=== PATIENT | female | born 1995 | race Hispanic/Latino ===

== ENCOUNTER 2019-06-16 08:44 | Emergency (ER) | payer BC ==
[~2019-06-16] VITALS: Ht 157.5 cm; Wt 65.8 kg
[~2019-06-16 08:44] MED LIST: EPIPEN0.3 MG/0.3; PROAIR HFA INH8.5 GM
--- OUTSIDE RECORDS SUMMARY | 2019-06-16 08:45 | XMS REPORT | Summary of Care ---
Author Author [facility] - Health Organization [facility] - Health Address Unknown Phone Unavailable Care Team Providers Care Shredded Filler Machine Wrapper Layer Name Role Phone Jaron Avila KEY CARRIER PCP Encounter Details Care Team Description Date Type Department Doctor Unassigned, [place] [address] [place] [address] 02/15/2019 Letter (Out) [facility] MyChart Messages [address] [place] [phone] Allergies Comments Active Allergy Reactions Severity Noted Date Iodine Rash 11/07/2018 Latex Rash 11/07/2018 Sulfa (Sulfonamide Rash 11/07/2018 Antibiotics) documented as of this encounter (statuses as of 02/15/2019) Medications End Date Status Medication Sig Dispensed Refills Start Date Active metFORMIN 500 mg tablet Take 500 mg 0 by mouth 2 (two) times daily with meals. documented as of this encounter (statuses as of 02/15/2019) Active Problems Not on filedocumented as of this encounter (statuses as of 02/15/2019) Social History Date Tobacco Use Types Packs/Day Years Used Never Smoker Smokeless Tobacco: Never Used Drinks/Week oz/Week Comments Alcohol Use Never Alcohol Habits Answer Date Recorded How often do you have a drink containing alcohol? Never 01/11/2019 How many drinks containing alcohol do you have on Not asked a typical day when you are drinking? How often do you have six or more drinks on one Not asked occasion? Sex Assigned at Date Recorded Not on file Industry Job Start Date Occupation Not on file Not on file Not on file Travel End Travel History Travel Start No recent travel history available. documented as of this encounter Last Filed Vital Signs Not on filedocumented in this encounter Plan of Treatment Care Team Description Date Type Specialty Yesi Diamond MD [address] [place], [place] [address] [phone] Arrived 02/15/2019 Office Visit Obstetrics & Gynecology Health Maintenance Due Date Last Done Comments MENINGOCOCCAL B VACCINES 2006 (1 of 2 - Risk Bexsero 2-dose series) VARICELLA VACCINES (1 of 2009 2 - 13+ 2-dose series) HPV VACCINES (1 - Female 2011 3-dose series) CHLAMYDIA SCREENING 2012 DTaP,Tdap,and Td Vaccines 2015 (1 - Tdap) PAP SMEAR 2017 INFLUENZA VACCINE 03/13/2019 MENINGOCOCCAL VACCINE Aged Out No longer eligible based on patient's age to complete this topic PNEUMOCOCCAL 0-64 YEARS Aged Out No longer eligible based COMBINED SERIES on patient's age to complete this topic documented as of this encounter Results Not on filedocumented in this encounter Insurance Type Payer Benefit Subscriber ID Effective Phone Address Plan / Dates Group PPO/POS BCBS OF [facility] BCBS OF [id number] 2018-P EMPLOYEE [place] [facility] EMPL[employer]EE PLAN [id number] 2018- [place] Present documented as of this encounter
--- OUTSIDE RECORDS SUMMARY | 2019-06-16 08:46 | XMS REPORT | Summary of Care ---
Author Author [facility] - Health Organization [facility] - Health Address Unknown Phone Unavailable Care Team Providers Care Meter Tester Name Role Phone Jaron Avila Nydia PLANT FLOOR AUTOMATION MANAGER PCP Reason for Visit * Radiology Services (Routine) Referred By Contact Referred To Contact Status Reason Specialty Diagnoses / Procedures Yesi Diamond MD [address] [place] [address] Authorized Diagnostic Diagnoses Radiology Family history of BRCA gene positive Lump or mass in breast P rocedures BI DIAGNOSTIC TOMOSYNTHESIS BILATERAL BI DIAGNOSTIC TOMOSYNTHESIS RIGHT BI DIAGNOSTIC MAMMOGRAM RIGHT Encounter Details Care Team Description Date Type Department Yesi Diamond MD [address] [place] [address] Arrived 02/17/2019 Hospital [facility] Encounter [facility] [address] [place] [phone] Allergies Comments Active Allergy Reactions Severity Noted Date Iodine Rash 11/07/2018 Latex Rash 11/07/2018 Sulfa (Sulfonamide Rash 11/07/2018 Antibiotics) documented as of this encounter (statuses as of 02/18/2019) Medications End Date Status Medication Sig Dispensed Refills Start Date Active metFORMIN 500 mg tablet Take 1 tablet 60 tablet 11 by mouth 2 9 (two) times daily with meals. documented as of this encounter (statuses as of 02/18/2019) Active Problems Not on filedocumented as of this encounter (statuses as of 02/18/2019) Social History Date Tobacco Use Types Packs/Day [...] Treatment Care Team Description Date Type Specialty Kelly Beckford [address] [place] [phone] 02/22/2019 Office Visit Pediatric Genetics Yesi Diamond MD [address] [place], [place] [phone] 03/08/2019 Office Visit Obstetrics & Gynecology Date/Time Name Type Priority Associated Diagnoses 02/17/2019 4:34 PM CDT BI DIAGNOSTIC IMAGING Routine Family history of BRCA TOMOSYNTHESIS BILATERAL gene positive Lump or mass in breast Order Schedule Name Type Priority Associated Diagnoses 1 Occurrences starting 02/17/2019 until 02/17/2019 BI DIAGNOSTIC IMAGING Routine Family history of BRCA TOMOSYNTHESIS BILATERAL gene positive Lump or mass in breast Health Maintenance Due Date Last Done Comments [...] Results Not on filedocumented in this encounter Visit Diagnoses Diagnosis Family history of BRCA gene positive Family history of genetic disease carrier Lump or mass in breast documented in this encounter Insurance Type Payer Benefit Subscriber ID Effective Phone Address Plan / Dates Group PPO/POS BCBS OF [facility] BCBS OF [id number] 2018-P EMPLOYEE [place] resent EMPLOYEE PLAN [id number] 2018- [place] Present documented as of this encounter
--- OUTSIDE RECORDS SUMMARY | 2019-06-16 08:46 | XMS REPORT | Summary of Care ---
Author Author [facility] - Health Organization [facility] - Health Address Unknown Phone Unavailable Care Team Providers Care Clinic Manager Name Role Phone Jaron Avila SURVEILLANCE ANALYST PCP Reason for Visit * Reason Comments INTRAUTERINE DEVICE Encounter Details Care Team Description Date Type Department Yesi Diamond MD [address] [place] [address] Encounter for IUD insertion (Primary Dx) 03/08/2019 Office Visit [facility] [address] [place] [phone] Allergies Comments Active Allergy Reactions Severity Noted Date Iodine Rash 11/07/2018 Latex Rash 11/07/2018 Sulfa (Sulfonamide Rash 11/07/2018 Antibiotics) documented as of this encounter (statuses as of 03/18/2019) Medications End Date Status Medication Sig Dispensed Refills Start Date Active metFORMIN 500 mg tablet Take 1 tablet 60 tablet 11 by mouth 2 9 (two) times daily with meals. Status Hospital, Clinic, or Ordered Dose Route Frequency Start End Date Other Facility Date Administered Medication Ended levonorgestrel (MIRENA) 1 Device Intrauterine ONCE 03/08/20 IUD 1 Device 19 9 documented as of this encounter (statuses as of 03/18/2019) Active Problems Not on filedocumented as of this encounter (statuses as of 03/18/2019) Social History Date Tobacco Use Types Packs/Day [...] of this encounter Last Filed Vital Signs Reading Time Taken Comments Vital Sign 101/69 03/08/2019 10:02 AM CDT Blood Pressure 67 03/08/2019 10:02 AM CDT Pulse - - Temperature - - Respiratory Rate - - Oxygen Saturation - - Inhaled Oxygen Concentration 95 kg (209 lb 6.4 oz) 03/08/2019 10:02 AM CDT Weight - - Height 37.09 02/15/2019 11:40 AM CDT Body Mass Index documented in this encounter Progress Notes * Yesi Diamond MD - 03/08/2019 9:15 AM CDT IUD INSERTION PROCEDURE NOTE Preoperative Diagnoses: PCOS, patient counseled and desires Mirena IUD. The risks, benefits and alternatives were discussed. The patient voiced her unde rstanding. She wished to proceed and an informed consent was obtained. Patient has been identified with name and and will be undergoing IUD placeme nt. Indications for IUD insertion are: PCOS. Patient, procedure and site have been confirmed by the following clinicians: Los Diamond MD . Timeout performed by Yesi Diamond MD Procedure: The patient is placed on the exam table in a supine position. Vagina l speculum inserted. The cervix was cleansed with Betadine. Uterus sounded to 7. 5 cm. IUD inserted without difficulty. String visible and trimmed. The patient tolerated the procedure well and there were no complications. Post-procedure instructions given. Patient verbalized understanding. Findings S/p successful IUD insertion Assessment/ Plan Mirena Lot #: see SEP Expiration date: see SEP RTC in 4-6 weeks for string check and WWE Yesi Diamond MD documented in this encounter Plan of Treatment Care Team Description Date Type Specialty Yesi Diamond MD [address] [place] [address] [phone] 04/12/2019 Office Visit Obstetrics & Gynecology Health Maintenance Due Date Last Done Comments MENINGOCOCCAL B VACCINES 2006 (1 of 2 - Risk Bexsero 2-dose series) VARICELLA VACCINES (1 of 2009 2 - 13+ 2-dose series) HPV VACCINES (1 - Female 2011 3-dose series) DTaP,Tdap,and Td Vaccines 2015 (1 - Tdap) PAP SMEAR 2017 INFLUENZA VACCINE (#1) 2019 CHLAMYDIA SCREENING 03/08/2020 03/08/2019 MENINGOCOCCAL VACCINE Aged Out No longer eligible based on patient's age to complete this topic PNEUMOCOCCAL 0-64 YEARS Aged Out No longer eligible based COMBINED SERIES on patient's age to complete this topic documented as of this encounter Procedures Comments Procedure Name Priority Date/Time Associated Diagnosis GC & CHLAMYDIA AMPLIFIED Routine 03/08/2019 Encounter for IUD ASSAY 10:06 AM CDT insertion POCT TEST Routine 03/08/2019 Encounter for IUD insertion documented in this encounter Results * GC & CHLAMYDIA AMPLIFIED ASSAY (03/08/2019 10:06 AM CDT) C. trachomatis NEGATIVE Negative [facility] N. gonorrhoeae NEGATIVE Negative [facility] Specimen Swab - CERVIX Performing Organization Address City/State/Zipcode Phone Number [facility] CLIA: [id number], [address] [place] [phone] [facility] * POCT TEST (03/08/2019) POCT PREG Negative On board Yes controls acceptable with C Line POCT PREG LOT # POCT PREG TEST DATE Specimen Urine - URINE, CLEAN CATCH Impressions Performed At [facility] development and interpretation of all internal controls documented in this encounter Visit Diagnoses Diagnosis Encounter for IUD insertion - Primary Encounter for insertion of intrauterine contraceptive device documented in this encounter Administered Medications Action Date Dose Rate Site Medication Order MAR Action 03/08/2019 10:38 AM CDT 1 Device levonorgestrel (MIRENA) IUD 1 Device Given 1 Device, Intrauterine, ONCE, 1 dose, 03/08/19 at 1115, Routine documented in this encounter Insurance Type Payer Benefit Subscriber ID Effective Phone Address Plan / Dates Group [facility] [id number] 2018-P EMPLOYEE [place] resent EMPLOYEE PLAN [id number] 2018- [place] Present documented as of this encounter
--- OUTSIDE RECORDS SUMMARY | 2019-06-16 08:46 | XMS REPORT ---
Author Author [facility] Address Unknown Phone Unavailable Care Team Providers Care Hand I Tube Bender Name Role Phone Unavailable Unavailable Problems This patient has no known problems. Allergies, Adverse Reactions, Alerts This patient has no known allergies or adverse reactions. Medications This patient has no known medications.
--- OUTSIDE RECORDS SUMMARY | 2019-06-16 08:46 | XMS REPORT | Summary of Care ---
Author Author [facility] - Health Organization [facility] - Health Address Unknown Phone Unavailable Care Team Providers Care Clock Mechanic Name Role Phone Jaron Avila BEVEL POLISHER PCP Reason for Referral * Radiology Services (Routine) Referred By Contact Referred To Contact Status Reason Specialty Diagnoses / Procedures Yesi Diamond MD [address] [place], [place] [phone] Closed Diagnostic Diagnoses Radiology PCOS (polycystic ovarian syndrome) Cyst of left ovary P rocedures US PELVIS COMPLETE WITH TRANSVAGINAL * Radiology Services (Routine) Referred By Contact Referred To Contact Status Reason Specialty Diagnoses / Procedures Yesi Diamond MD [address] [place] [phone] Closed Diagnostic Diagnoses Radiology PCOS (polycystic ovarian syndrome) Cyst of left ovary P rocedures US PELVIS COMPLETE WITH TRANSVAGINAL Reason for Visit * Radiology Services (Routine) Referred By Contact Referred To Contact Status Reason Specialty Diagnoses / Procedures Yesi Diamond MD [address] [place] [phone] Closed Diagnostic Diagnoses Radiology PCOS (polycystic ovarian syndrome) Cyst of left ovary P rocedures US PELVIS COMPLETE WITH TRANSVAGINAL Encounter Details Care Team Description Date Type Department Yesi Diamond MD [address] [place] [phone] Arrived 02/17/2019 Hospital [facility] Encounter [facility] [address] [place] [phone] Allergies Comments Active Allergy Reactions Severity Noted [...] Team Description Date Type Specialty Kelly Beckford [address] [place] [phone] 02/22/2019 Office Visit Pediatric Genetics Yesi Diamond MD [address] [place] [address] 03/08/2019 Office Visit Obstetrics & Gynecology Health Maintenance [...] Comments Procedure Name Priority Date/Time Associated Diagnosis US PELVIS COMPLETE WITH Routine 02/17/2019 PCOS (polycystic ovarian TRANSVAGINAL 3:59 PM CDT syndrome) Cyst of left ovary documented in this encounter Results * US PELVIS COMPLETE WITH TRANSVAGINAL (02/17/2019 3:59 PM CDT) Specimen Impressions Performed At Both ovaries measure greater than 10 cc with numerous follicles, can be PACS/VR/DOSE seen with polycystic ovarian syndrome. Violeta Alicea MD., have reviewed this study and agree with the above report. Narrative Performed At EXAM: US PELVIS COMPLETE WITH TRANSVAGINAL PACS/VR/DOSE HISTORY: f/u ovarian cyst . Per chart review, the patient has a history of PCOS. COMPARISON: None. FINDINGS: The uterus is normal in size and echo-texture and exhibits no masses or focal defects.It measures 6.2 x 2.3 x 5.3 cm (39 cc).The endometrial stripe measures a normal 2 mm. Both ovaries measure greater than 10 cc with peripheral follicles (greater than 20 in each ovary).The right ovary measures 10.6 cc and the left ovary measures 14.9 cc cm. The urinary bladder is unremarkable. No fluid is present in the cul-de-sac. Procedure Note [facility], Radiant Results Inft User - 02/17/2019 4:54 PM CDT EXAM: US PELVIS COMPLETE WITH TRANSVAGINAL HISTORY: f/u ovarian cyst . Per chart review, the patient has a history of PCOS. COMPARISON: None. FINDINGS: The uterus is normal in size and echo-texture and exhibits no masses or focal defects. It measures 6.2 x 2.3 x 5.3 cm (39 cc). The endometrial stripe measures a normal 2 mm. Both ovaries measure greater than 10 cc with peripheral follicles (greater than 20 in each ovary). The right ovary measures 10.6 cc and the left ovary measures 14.9 cc cm. The urinary bladder is unremarkable. No fluid is present in the cul-de-sac. IMPRESSION Both ovaries measure greater than 10 cc with numerous follicles, can be seen with polycystic ovarian syndrome. Violeta Alicea MD., have reviewed this study and agree with the above report. Performing Organization Address City/State/Zipcode Phone Number PACS/VR/DOSE documented in this encounter Visit Diagnoses Diagnosis PCOS (polycystic ovarian syndrome) Polycystic ovaries Cyst of left ovary Other and unspecified ovarian cyst documented in this encounter Insurance Type Payer Benefit Subscriber ID Effective Phone Address Plan / Dates Group PPO/POS BCBS OF [facility] BCBS OF [id number] 2018-P EMPLOYEE [place] resent EMPLOYEE PLAN [id number] 2018- [facility] Present documented as of this encounter
--- OUTSIDE RECORDS SUMMARY | 2019-06-16 08:46 | XMS REPORT | Summary of Care ---
Author Author [facility] - Health Organization [facility] - Health Address Unknown Phone Unavailable Care Team Providers Care Sergeant Of Officers Name Role Phone Jaron Avila MANAGER BEHAVIORAL PCP Reason for Visit * Radiology Services (Routine) Referred By Contact Referred To Contact Status Reason Specialty Diagnoses / Procedures Yesi Diaomnd MD [address] [place] [phone] Closed Diagnostic Diagnoses Radiology Family history of BRCA gene positive P rocedures BI ULTRASOUND BREAST LIMITED RIGHT BI ULTRASOUND BREAST COMPLETE RIGHT Encounter Details Care Team Description Date Type Department Yesi Diamond MD [address] [place] [phone] Arrived 02/17/2019 Hospital [facility] Encounter [facility] [address] [place] [phone] Allergies Comments Active Allergy Reactions Severity Noted [...] Description Date Type Specialty Kelly Beckford [address] [place] [phone] 02/22/2019 Office Visit Pediatric Genetics Yesi Diamond MD [address] [place] [address] [phone] 03/08/2019 Office Visit Obstetrics & Gynecology Date/Time Name Type Priority Associated Diagnoses 02/17/2019 5:15 PM CDT BI ULTRASOUND BREAST IMAGING Routine Family history of BRCA LIMITED RIGHT gene positive Order Schedule Name Type Priority Associated Diagnoses 1 Occurrences starting 02/17/2019 until 02/17/2019 BI ULTRASOUND BREAST IMAGING Routine Family history of BRCA LIMITED RIGHT gene positive Health Maintenance Due Date Last Done Comments [...] positive Family history of genetic disease carrier documented in this encounter Insurance Type Payer Benefit Subscriber ID Effective Phone Address Plan / Dates Group PPO/POS BCBS OF [facility] BCBS OF [id number] 2018-P EMPLOYEE [place] resent EMPLOYEE PLAN [id number] 2018- [place] Present documented as of this encounter
--- OUTSIDE RECORDS SUMMARY | 2019-06-16 08:46 | XMS REPORT | Summary of Care ---
Author Author [facility] - Health Organization [facility] - Health Address Unknown Phone Unavailable Care Team Providers Care Head Of Conservation Name Role Phone Jaron Avila ASSISTANT PROFESSOR OF PSYCHOLOGY PCP Encounter Details Care Team Description Date Type Department Doctor Unassigned, [place] [address] [place] [phone] 02/15/2019 Orders Only [facility] [address] [place] [address] Allergies Comments Active Allergy Reactions Severity Noted Date Iodine Rash 11/07/2018 Latex Rash 11/07/2018 Sulfa (Sulfonamide Rash 11/07/2018 Antibiotics) documented as of this encounter (statuses as of 02/25/2019) Medications End Date Status Medication Sig Dispensed Refills Start Date Active metFORMIN 500 mg tablet Take 1 tablet 60 tablet 11 by mouth 2 9 (two) times daily with meals. documented as of this encounter (statuses as of 02/25/2019) Active Problems Not on filedocumented as of this encounter (statuses as of 02/25/2019) Social History Date Tobacco Use Types Packs/Day [...] Description Date Type Specialty Yesi Diamond MD [address] [place] [address] [phone] 03/08/2019 Office Visit Obstetrics & Gynecology Health Maintenance Due Date Last Done Comments MENINGOCOCCAL B VACCINES 2006 (1 of 2 - Risk Bexsero 2-dose series) VARICELLA VACCINES (1 of 2009 2 - 13+ 2-dose series) HPV VACCINES (1 - Female 2011 3-dose series) CHLAMYDIA SCREENING 2012 DTaP,Tdap,and Td Vaccines 2015 (1 - Tdap) PAP SMEAR 2017 INFLUENZA VACCINE 03/13/2019 (Retired version) MENINGOCOCCAL VACCINE Aged Out No longer eligible based on patient's age to complete this topic PNEUMOCOCCAL 0-64 YEARS Aged Out No longer eligible based COMBINED SERIES on patient's age to complete this topic documented as of this encounter Procedures Comments Procedure Name Priority Date/Time Associated Diagnosis AUTHORIZATION FOR RELEASE Routine 02/15/2019 OF PHI 12:01 AM CDT documented in this encounter Results Not on filedocumented in this encounter Insurance Type Payer Benefit Subscriber ID Effective Phone Address Plan / Dates Group PPO/POS BCBS OF [facility] BCBS OF [id number] 2018-P EMPLOYEE [place] resent EMPLOYEE PLAN [id number] 2018- [place] Present documented as of this encounter
--- OUTSIDE RECORDS SUMMARY | 2019-06-16 08:46 | XMS REPORT | Summary of Care ---
Author Author [facility] - Health Organization [facility] - Health Address Unknown Phone Unavailable Care Team Providers Care Dumb Waiter Operator Name Role Phone Jaron Avila PERSONNEL RECORDS CLERK PCP Reason for Visit * Reason Comments Results Encounter Details Care Team Description Date Type Department Yesi Diamond MD [address] [place] [address] Results 03/10/2019 Telephone [facility] [place] [address] [place] [phone] Allergies Comments Active Allergy Reactions Severity Noted Date Iodine Rash 11/07/2018 Latex Rash 11/07/2018 Sulfa (Sulfonamide Rash 11/07/2018 Antibiotics) documented as of this encounter (statuses as of 03/10/2019) Medications End Date Status Medication Sig Dispensed Refills Start Date Active metFORMIN 500 mg tablet Take 1 tablet 60 tablet 11 by mouth 2 9 (two) times daily with meals. documented as of this encounter (statuses as of 03/10/2019) Active Problems Not on filedocumented as of this encounter (statuses as of 03/10/2019) Social History Date Tobacco Use Types Packs/Day [...] Description Date Type Specialty Yesi Diamond MD [address] [place] [address] [phone] 04/12/2019 Office Visit Obstetrics & Gynecology Health [...] Plan / Dates Group PPO/POS BCBS OF [facility] BCBS OF [id number] 2018-P EMPLOYEE [place] resent EMPLOYEE PLAN [id number] 2018- [place] Present documented as of this encounter
--- OUTSIDE RECORDS SUMMARY | 2019-06-16 08:46 | XMS REPORT | Summary of Care ---
Author Author [facility] - Health Organization [facility] - Health Address Unknown Phone Unavailable Care Team Providers Care Refueling Ramp Attendant Name Role Phone Jaron Avila CNC MILL PROGRAMMER PCP Reason for Visit * Reason Comments INTRAUTERINE DEVICE Encounter Details Care Team Description Date Type Department Yesi Diamond MD [address] [place] [address] Encounter for IUD insertion (Primary Dx) 03/08/2019 Office Visit [facility] [place] [address] [place] [address] Allergies Comments Active Allergy Reactions Severity Noted Date Iodine Rash 11/07/2018 Latex Rash 11/07/2018 Sulfa (Sulfonamide Rash 11/07/2018 Antibiotics) documented as of this encounter (statuses as of 03/08/2019) Medications End Date Status Medication Sig Dispensed [...] as of this encounter (statuses as of 03/08/2019) Active Problems Not on filedocumented as of this encounter (statuses as of 03/08/2019) Social History Date Tobacco Use Types Packs/Day [...] Description Date Type Specialty Yesi Diamond MD [address] [place] [address] [phone] 04/12/2019 Office Visit Obstetrics & Gynecology Date/Time Name Type Priority Associated Diagnoses 03/08/2019 10:06 AM CDT GC & CHLAMYDIA AMPLIFIED LAB Routine Encounter for IUD ASSAY insertion Health Maintenance Due Date Last Done Comments MENINGOCOCCAL B VACCINES 2006 (1 of 2 - Risk Bexsero 2-dose series) VARICELLA VACCINES (1 of 2009 2 - 13+ 2-dose series) HPV VACCINES (1 - Female 2011 3-dose series) CHLAMYDIA SCREENING 2012 DTaP,Tdap,and Td Vaccines 2015 (1 - Tdap) PAP SMEAR 2017 INFLUENZA VACCINE (#1) 2019 MENINGOCOCCAL VACCINE Aged Out No longer eligible based on patient's age to complete this topic PNEUMOCOCCAL 0-64 YEARS Aged Out No longer eligible based COMBINED SERIES on patient's age to complete this topic documented as of this encounter Procedures Comments Procedure Name Priority Date/Time Associated Diagnosis POCT TEST Routine 03/08/2019 Encounter for IUD insertion documented in this encounter Results * POCT TEST (03/08/2019) POCT PREG Negative On board Yes controls acceptable with C Line POCT PREG LOT # POCT PREG TEST DATE Specimen Urine - URINE, CLEAN CATCH Impressions Performed At carrier clinic development and interpretation of all internal controls documented in this encounter Visit Diagnoses Diagnosis Encounter for IUD insertion - Primary Encounter for insertion of intrauterine contraceptive device documented in this encounter Administered Medications Action Date Dose Rate Site Medication Order MAR Action 03/08/2019 10:38 AM CDT 1 Device levonorgestrel (MIRENA) IUD 1 Device Given 1 Device, Intrauterine, ONCE, 1 dose, Thu03/08/19 at 1115, Routine documented in this encounter Insurance Type Payer Benefit Subscriber ID Effective Phone Address Plan / Dates Group PPO/POS BCBS OF [facility] BCBS OF [id number] 2018-P EMPLOYEE [place] resent EMPLOYEE PLAN [id number] 2018- [place] Present documented as of this encounter
--- OUTSIDE RECORDS SUMMARY | 2019-06-16 08:46 | XMS REPORT | Summary of Care ---
Author Author [facility] - Health Organization [facility] - Health Address Unknown Phone Unavailable Care Team Providers Care Cream Dipper Name Role Phone Jaron Avila Nydia RESIDENTIAL PEST CONTROL TECHNICIAN PCP Reason for Referral * Radiology Services (Routine) Referred By Contact Referred To Contact Status Reason Specialty Diagnoses / Procedures Yesi Diamond MD [address] [place] [address] New Request Diagnostic Diagnoses Radiology Family history of BRCA gene positive Lump or mass in breast P rocedures BI DIAGNOSTIC MAMMOGRAM RIGHT Reason for Visit * Reason Comments Orders Encounter Details Care Team Description Date Type Department Yesi Diamond MD [address] [place] [address] Orders 02/16/2019 Telephone [facility] [place] [facility] [address] [place] [address] Allergies Comments Active Allergy Reactions Severity Noted Date Iodine Rash 11/07/2018 Latex Rash 11/07/2018 Sulfa (Sulfonamide Rash 11/07/2018 Antibiotics) documented as of this encounter (statuses as of 02/16/2019) Medications End Date Status Medication Sig Dispensed Refills Start Date Active metFORMIN 500 mg tablet Take 1 tablet 60 tablet 11 by mouth 2 9 (two) times daily with meals. documented as of this encounter (statuses as of 02/16/2019) Active Problems Not on filedocumented as of this encounter (statuses as of 02/16/2019) Social History Date Tobacco Use Types Packs/Day [...] Description [place] [address] [place] [address] [phone] 02/17/2019 Hospital Radiology Encounter Yesi Diamond MD [address] [place] [phone] 02/17/2019 [facility] [address] [place] [address] 02/22/2019 Office Visit Pediatric Genetics Yesi Diamond MD [address] [place] [address] 398[address] 03/08/2019 Office Visit Obstetrics & Gynecology Order Schedule Name Type Priority Associated Diagnoses Expected: 02/16/2019, Expires: 04/18/2020 BI DIAGNOSTIC MAMMOGRAM IMAGING Routine Family history of BRCA RIGHT gene positive Lump or mass in breast [...] Diagnosis Family history of BRCA gene positive - Primary Family history of genetic disease carrier Lump or mass in breast documented in this encounter Insurance Type Payer Benefit Subscriber ID Effective Phone Address Plan / Dates Group PPO/POS BCBS OF [facility] BCBS OF [id number] 2018-P EMPLOYEE [place] resent EMPLOYEE PLAN [id number] 2018- [place] Present documented as of this encounter
--- OUTSIDE RECORDS SUMMARY | 2019-06-16 08:46 | XMS REPORT | Summary of Care ---
Author Author [facility] - Health Organization [facility] - Health Address Unknown Phone Unavailable Care Team Providers Care Energy Manager Name Role Phone Jaron Avila RECYCLING WORKER PCP Reason for Referral * Radiology Services (Routine) Referred By Contact Referred To Contact Status Reason Specialty Diagnoses / Procedures Yesi Diamond MD [address] [place] [address] Authorized Diagnostic Diagnoses Radiology Family history of BRCA gene positive P rocedures BI ULTRASOUND BREAST COMPLETE RIGHT * Radiology Services (Routine) Referred By Contact Referred To Contact Status Reason Specialty Diagnoses / Procedures Yesi Diamond MD [address] [place] [address] Authorized Diagnostic Diagnoses Radiology PCOS (polycystic ovarian syndrome) Cyst of left ovary P rocedures US PELVIS COMPLETE WITH TRANSVAGINAL * (Routine) Referred By Contact Referred To Contact Status Reason Specialty Diagnoses / Procedures Yesi Diamond MD [address] [place] [address] New Request Pediatric Diagnoses Genetics Family history of BRCA gene positive P rocedures CONSULT/REFERRAL CANCER GENETICS Reason for Visit * Reason Comments Consult Reason for referral - please evaluate and treat for: hx of PCOS and sister with BRCA gene at 32. patient has been on fertility treatments. * (Routine) Referred By Contact Referred To Contact Status Reason Specialty Diagnoses / Procedures Jaron Avila, RECYCLING WORKER [address] [place] [address] Yesi Diamond MD [address] [place] [address] New Request Obstetrics & Diagnoses Gynecology PCOS (polycystic ovarian syndrome) P rocedures CONSULT/REFERRAL MERCHANDISE COMPLAINT ADJUSTER Encounter Details Care Team Description Date Type Department Yesi Diamond MD [address] [place], [place] [address] Family history of BRCA gene positive (Primary Dx); PCOS (polycystic ovarian syndrome); Cyst of left ovary; Lump or mass in breast 02/15/2019 Office Visit [facility] [place] [address] [place] [address] [address] [place] [address] Allergies Comments Active Allergy Reactions Severity Noted Date Iodine Rash 11/07/2018 Latex Rash 11/07/2018 Sulfa (Sulfonamide Rash 11/07/2018 Antibiotics) documented as of this encounter (statuses as of 02/15/2019) Medications End Date Status Medication Sig Dispensed Refills Start Date Active metFORMIN 500 mg tablet Take 1 tablet 60 tablet 11 by mouth 2 9 (two) times daily with meals. 02/15/2019 Discontinued metFORMIN 500 mg tablet Take 500 mg [...] Signs Reading Time Taken Comments Vital Sign 106/74 02/15/2019 11:40 AM CDT Blood Pressure 68 02/15/2019 11:40 AM CDT Pulse - - Temperature - - Respiratory Rate - - Oxygen Saturation - - Inhaled Oxygen Concentration 94.3 kg (207 lb 14.4 oz) 02/15/2019 11:40 AM CDT Weight 160 cm (5' 3") 02/15/2019 11:40 AM CDT Height 36.83 02/15/2019 11:40 AM CDT Body Mass Index documented in this encounter Progress Notes * Yesi Diamond MD - 02/15/2019 11:15 AM CDT Chief complaint: Chief Complaint Patient presents with Consult Reason for referral - please evaluate and treat for: hx of PCOS and sister wi th BRCA gene at 32. patient has been on fertility treatments. HPI Elvia Diallo is a 23 year old female presenting for: -sister diagnosed with breast cancer BRCA positive, was referred for testing - in 10/2018- pelvic US at OSH showed left adnexal cyst : "4.2 x 3.1 x 2.5 2.0 x 1.8 cm slightly complex cyst with septations that may represent a small hemorrha gic cyst" -patient has a hx of PCOS and requesting metformin refills for PCOS. [facility] she underwent fertility treatment in [facility] -patient reports feeling a right breast mass Histories OB History Para Term AB Living 2 SAB TAB Ectopic Multiple Live Births # Outcome Date GA Lbr Guilherme/2nd Weight Sex Delivery Anes PTL Lv 2 1 Obstetric Comments 2 miscarriages at 5 weeks jul 2017 and 7 weeks jun 2018. Has been on fertility t reatments until jul 2018 Past Medical History: Diagnosis Date Asthma PCOS (polycystic ovarian syndrome) Family History Problem Relation Age of Onset Thyroid Mother hypothyroidism High cholesterol Mother Stroke Father Psychiatry Father bipolar Cancer Sister breast ca ductal carcinoma brca gene Neurological Brother autism Cancer Maternal Grandfather adenoid cystic carcinoma Family Status Relation Name Status Mo Alive, age 49y Fa Alive, age 56y Sis Alive, age 32y Bro Alive, age 20y MGFa Alive, age 67y Past Surgical History: Procedure Laterality Date MEDIAL PATELLAR FEMORAL LIGAMENT (MPFL) RECONSTRUCTION (SHX) Left 06/2013 PARTIAL THYROIDECTOMY R lobectomy 06/2017 Social History Socioeconomic History Marital status: Spouse name: Not on file Number of children: Not on file Years of education: Not on file Highest education level: Not on file Occupational History Not on file Social Needs Financial resource strain: Not on file Food insecurity: Worry: Not on file Inability: Not on file Transportation needs: Medical: Not on file Non-medical: Not on file Tobacco Use Smoking status: Never Smoker Smokeless tobacco: Never Used Substance and Sexual Activity Alcohol use: Never Frequency: Never Drug use: Never Sexual activity: Yes Lifestyle Physical activity: Days per week: Not on file Minutes per session: Not on file Stress: Not on file Relationships Social connections: Talks on phone: Not on file Gets together: Not on file Attends shinto service: Not on file Active member of club or organization: Not on file Attends meetings of clubs or organizations: Not on file Relationship status: Not on file Intimate partner violence: Fear of current or ex partner: Not on file Emotionally abused: Not on file Physically abused: Not on file Forced sexual activity: Not on file Other Topics Concern Not on file 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 Social History Substance and Sexual Activity Sexual Activity Yes Labs No new labs Radiology No new radiology. Allergies Elvia is allergic to iodine; latex; and sulfa (sulfonamide antibiotics). Medications Elvia has a current medication list which includes the following prescriptio n(s): metformin. Review of Systems Constitutional: Negative. HENT: Negative. Eyes: Negative. Respiratory: Negative. Breasts: Positive for mass. Cardiovascular: Negative. Gastrointestinal: Negative. Genitourinary: Positive for menstrual problem (no menses since 11/2017 ). Musculoskeletal: Negative. Neurological: Negative. BP 106/74 | Pulse 68 | Ht 5' 3" (1.6 m) | Wt 207 lb 14.4 oz (94.3 kg) | LMP 11/14/2018 | BMI 36.83 kg/m Pregravid BMI: Could not be calculated Physical Exam Vitals reviewed. Constitutional: She is oriented to person, place, and time. She appears well-dev eloped, well-nourished and well-groomed. Her body habitus is obese. She has no d eformities. Pulmonary/Chest: Normal inspiratory effort. Neuro/Psychiatric: She has a normal mood and affect. She is oriented to person, place, and time. Lymphadenopathy: No axillary adenopathy present. Breast: Right breast exhibits mass (1x1 cm at 1 oclock 3 cm from nipple). Right breast exhibits no nipple discharge and no tenderness. Left breast exhibits no m ass, no nipple discharge and no tenderness. Assessment/Plan Family history of BRCA gene positive (primary encounter diagnosis) Comment: see HPI Plan: CONSULT/REFERRAL CANCER GENETICS, PCOS (polycystic ovarian syndrome) Comment: states she has glucose intolerance, started on metformin, refills given . Also cousneled about OCP vs IUD for PCOS.she desires IUD. Mirena IUD handouts given Plan: US PELVIS COMPLETE WITH TRANSVAGINAL Cyst of left ovary Comment: see HPI Plan: US PELVIS COMPLETE WITH TRANSVAGINAL \\ Lump or mass in breast Comment: see above Plan: BI ULTRASOUND BREAST COMPLETE RIGHT Will folLow up results. RTC for WWE Yesi Diamond MD documented in this encounter Plan of Treatment Care Team Description [place] [address] [place] [address] [phone] 02/17/2019 Appointment Radiology Yesi Diamond MD [address] [place] [address] [phone] 02/17/2019 Appointment Radiology Kelly Beckford [address] [place] [address] 02/22/2019 Office Visit Pediatric Genetics Yesi Diamond MD [address] [place] [address] [phone] 03/08/2019 Office Visit Obstetrics & Gynecology Order Schedule Name Type Priority Associated Diagnoses Expected: 02/15/2019, Expires: 02/15/2020 US PELVIS COMPLETE WITH IMAGING Routine PCOS (polycystic ovarian TRANSVAGINAL syndrome) Cyst of left ovary Expected: 02/15/2019, Expires: 04/17/2020 BI ULTRASOUND BREAST IMAGING Routine Family history of BRCA COMPLETE RIGHT gene positive Health Maintenance Due Date [...] Primary Family history of genetic disease carrier PCOS (polycystic ovarian syndrome) Polycystic ovaries Cyst of left ovary Other and unspecified ovarian cyst Lump or mass in breast documented in this encounter Insurance Type Payer Benefit Subscriber ID Effective Phone Address Plan / Dates Group PPO/POS BCBS OF [facility] [place] BCBS OF [id number] 2018-P EMPLOYEE [place] resent EMPLOYEE PLAN [id number] 2018- [facility] Present documented as of this encounter
--- OUTSIDE RECORDS SUMMARY | 2019-06-16 08:46 | XMS REPORT | Summary of Care ---
Author Author [facility] - Health Organization [facility] - Health Address Unknown Phone Unavailable Care Team Providers Care Account Services Manager Name Role Phone Jaron Avila STRUCTURAL STEEL EQUIPMENT ERECTOR PCP Reason for Visit * Reason Comments Results Encounter Details Care Team Description Date Type Department Yesi Diamond MD [address] [place] [address] Results 02/21/2019 Telephone [facility] [place] [address] [place] [address] Allergies Comments Active Allergy Reactions Severity Noted Date Iodine Rash 11/07/2018 Latex Rash 11/07/2018 Sulfa (Sulfonamide Rash 11/07/2018 Antibiotics) documented as of this encounter (statuses as of 02/21/2019) Medications End Date Status Medication Sig Dispensed Refills Start Date Active metFORMIN 500 mg tablet Take 1 tablet 60 tablet 11 by mouth 2 9 (two) times daily with meals. documented as of this encounter (statuses as of 02/21/2019) Active Problems Not on filedocumented as of this encounter (statuses as of 02/21/2019) Social History Date Tobacco Use Types Packs/Day [...] Team Description Date Type Specialty Kelly Beckford [address] [place] [address] 02/22/2019 Office Visit Pediatric Genetics Yesi Diamond MD [address] [place] [address] [phone] 03/08/2019 Office Visit Obstetrics & Gynecology Health [...] Plan / Dates Group PPO/POS BCBS OF [facility] BCBS OF [id number] 2018-P EMPLOYEE [place] resent EMPLOYEE PLAN [id number] 2018- [place] Present documented as of this encounter
--- OUTSIDE RECORDS SUMMARY | 2019-06-16 08:46 | XMS REPORT | Summary of Care ---
Author Author [facility] - Health Organization [facility] - Health Address Unknown Phone Unavailable Care Team Providers Care Vp Outcomes Name Role Phone Jaron Avila CONE EXAMINER PCP Reason for Visit * Reason Comments INTRAUTERINE DEVICE Encounter Details Care Team Description Date Type Department Yesi Diamond MD [address] [place] [address] Encounter for IUD insertion (Primary Dx) 03/08/2019 Office Visit [facility] [place] [address] [place] [address] Allergies Comments Active Allergy Reactions [...] Description Date Type Specialty Yesi Diamond MD [address] [place] [address] [phone] 04/12/2019 Office Visit Obstetrics & Gynecology Health [...] 10:06 AM CDT) C. trachomatis NEGATIVE Negative [facility] [facility] N. gonorrhoeae NEGATIVE Negative [facility] Specimen Swab - CERVIX Performing Organization Address City/State/Zipcode Phone Number [facility] CLIA: [id number], [address] [place] [id number] [facility] * POCT TEST (03/08/2019) POCT PREG Negative On board Yes controls acceptable with C Line POCT PREG LOT # POCT PREG TEST DATE Specimen Urine - URINE, CLEAN CATCH Impressions Performed At [facility] development and interpretation of all internal controls [...] Phone Address Plan / Dates Group [facility] [id number] 2018-P EMPLOYEE [place] resent EMPLOYEE PLAN [id number] 2018- [place] Present documented as of this encounter
--- OUTSIDE RECORDS SUMMARY | 2019-06-16 08:46 | XMS REPORT | Summary of Care ---
Author Author [facility] - Health Organization [facility] - Health Address Unknown Phone Unavailable Care Team Providers Care Truck Trailer Final Inspector Name Role Phone Jaron Avila ETYMOLOGY TEACHER PCP Reason for Visit * Reason Comments INTRAUTERINE DEVICE Encounter Details Care Team Description Date Type Department Yesi Diamond MD [address] [place] [address] Encounter for IUD insertion (Primary Dx) 03/08/2019 Office Visit [facility] [place] [address] [place] [address] Allergies Comments Active Allergy Reactions [...] Description Date Type Specialty Yesi Diamond MD [address] [place] [address] [phone] 04/12/2019 Office Visit Obstetrics & Gynecology Date/Time [...] [facility] BCBS OF [id number] 2018-P EMPLOYEE [place] resent EMPLOYEE PLAN [id number] 2018- [place] Present documented as of this encounter
--- OUTSIDE RECORDS SUMMARY | 2019-06-16 08:46 | XMS REPORT | Summary of Care ---
Author Author [facility] - Health Organization [facility] - Health Address Unknown Phone Unavailable Care Team Providers Care Automotive Airconditioning Mechanic Name Role Phone Jaron Avila REEL ASSEMBLER PCP Reason for Referral * Radiology Services (Routine) Referred By Contact Referred To Contact Status Reason Specialty Diagnoses / Procedures Yesi Diamond MD [address] [place] [address] Authorized Diagnostic Diagnoses Radiology Family history of BRCA gene positive P rocedures BI ULTRASOUND BREAST COMPLETE RIGHT * Radiology Services (Routine) Referred By Contact Referred To Contact Status Reason Specialty Diagnoses / Procedures Yesi Diamond MD [address] [place] [address] Authorized Diagnostic Diagnoses Radiology PCOS (polycystic ovarian syndrome) Cyst of left ovary P rocedures US PELVIS COMPLETE WITH TRANSVAGINAL * (Routine) Referred By Contact Referred To Contact Status Reason Specialty Diagnoses / Procedures Yesi Diamond MD [address] [place] [address] New Request Pediatric Diagnoses Genetics Family history [...] Reason Specialty Diagnoses / Procedures Jaron Avila, REEL ASSEMBLER [address] [place] [address] Yesi Diamond MD [address] [place] [address] New Request Obstetrics & Diagnoses Gynecology PCOS (polycystic ovarian syndrome) P rocedures CONSULT/REFERRAL FLATWORK ASSEMBLER Encounter Details Care Team Description Date Type Department Yesi Diamond MD [address] [place], [place] [address] Family history of BRCA gene positive (Primary Dx); PCOS (polycystic ovarian syndrome); Cyst of left ovary; Lump or mass in breast 02/15/[address] [facility] [place] [address] [place] [address] [address] [place] [address] Allergies Comments Active Allergy Reactions [...] PCOS and requesting metformin refills for PCOS. [facility] she underwent fertility treatment in 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 [...] Description [place] [address] [place] [address] [phone] 02/17/2019 Appointment Radiology Yesi Diamond MD [address] [place] [address] [phone] 02/17/2019 Appointment Radiology Kelly Beckford [address] [place] [address] 02/22/2019 Office Visit Pediatric Genetics Yesi Diamond MD [address] [place] [address] [phone] 03/08/2019 Office Visit Obstetrics & Gynecology Order [...] Plan / Dates Group PPO/POS BCBS OF [facility] BCBS OF [id number] 2018-P EMPLOYEE [place] resent EMPLOYEE PLAN [id number] 2018- [facility] Present documented as of this encounter
[2019-06-16] MEDS ORDERED: DEXAMETHASONE SOD PHOS 10 MG/1 ML VIAL IM ONE (09:00)
== END 2019-06-16 09:29 | disposition home or self-care (01) ==
LOC: ER 08:44
DX: R05 Cough (principal); J02.9 Acute pharyngitis, unspecified; J04.0 Acute laryngitis
CPT/HCPCS: 99283; J1100